=== PATIENT | female | born 1990 ===

== ENCOUNTER 2024-12-19 01:46 | Emergency (ER) | payer MEDICAID ==
[~2024-12-19] VITALS: Ht 157.5 cm; Wt 111.6 kg
[2024-12-19 02:09] LABS: BASOPHILS 0.5 % (0.1-1.2); EOSINOPHILS 1.1 % (0.7-5.8); LYMPHOCYTES 32.1 % (19.3-51.7); MCH 31.5 PG (25.6-32.2); MCHC 34.5 g/dL (32.2-35.5); MCV 91.2 fL (79.4-94.8); MONOCYTES 6.7 % (4.7-12.5); NEUTROPHILS 59.3 % (34.0-71.1); RBC 4.57 M/uL (3.93-5.22)
[2024-12-19 02:43] LABS: ALT (SGPT) 31.0 U/L (14-59); AST (SGOT) 19.0 U/L (15-37); GLOMERULAR FILTRATION RATE,EST 119.0 mL/min (>60); PROTEIN, TOTAL 7.4 g/dL (6.4-8.2); UREA NITROGEN 16.0 mg/dL (7-18)
[2024-12-19 03:11] VITALS: BP 117/79
--- NOTE | 2024-12-19 09:55 | EKG ---
[facility] [address] [place], [place] [address] Signed Normal sinus rhythm Nonspecific ST abnormality Abnormal ECG No previous ECGs available Confirmed by French Meraz DO ([id number]) on 12/19/2024 9:55:46 AM Electronically Signed By: FRENCH MERAZ DO 12/19/24 0955 PATIENT NAME: MAREN BURNS Electrocardiogram DATE OF : 88 PHYSICIAN: FRENCH MERAZ DO REPORT #: [id number] REPORT IS CONFIDENTIAL AND NOT TO BE RELEASED WITHOUT AUTHORIZATION
== END 2024-12-19 03:12 | disposition home or self-care (01) ==
LOC: ED 01:46
PROVIDERS: Emergency Medicine
DX: R07.2 Precordial pain (principal); Z88.5 Allergy status to narcotic agent; G47.30 Sleep apnea, unspecified
CPT/HCPCS: 36415; 71045; 80053; 83735; 84484; 85025; 93005; 93010; 99285-25